=== PATIENT | male | born 1965 | race Caucasian/White ===

== ENCOUNTER → 2018-06-11 | Outpatient (CLI) | payer BC ==
[~2018-06-11] MED LIST: CEPH500 PO; LEVFLO500 PO; METR500 PO
[2018-06-11 09:52] LABS: Anion Gap 13 mmol/L (6-16); Blood Urea Nitrogen 16 mg/dL (8-24); Bun/Creatinine Ratio 15.2 (12.0-20.0); CO2, Blood 23 mmol/L (21-32); Calcium, Blood 9.2 mg/dL (8.5-10.1); Chloride, Blood 102 mmol/L (98-108); Creatinine, Blood 1.05 mg/dL (0.60-1.20); Glomerular Filtration Rate >60 (60-); Glucose, Blood 239 mg/dL (70-99); Potassium, Blood 3.8 mmol/L (3.5-5.5); Sodium, Blood 138 mmol/L (136-145)
[2018-06-12 10:38] LABS: Albumin, Blood 3.9 g/dL (3.4-5.0); Albumin/Globulin Ratio 1.1 (0.8-1.8); Bilirubin, Direct 0.1 mg/dL (0.0-0.3); Bilirubin, Indirect 0.4 mg/dL (0.1-0.7); Bilirubin, Total 0.5 mg/dL (0.1-1.0); Globulin, Blood 3.4 g/dL (2.2-4.0); Total Protein, Blood 7.3 g/dL (6.4-8.2)
== END | disposition home or self-care (01) ==
LOC: LAB EV 09:38 → LAB SHORT 09:38
PROVIDERS: Physician Assistant Medical
DX: I10 Essential (primary) hypertension (principal); R73.9 Hyperglycemia, unspecified
CPT/HCPCS: 80048; 80076; 83036

== ENCOUNTER → 2020-10-01 | Outpatient (CLI) | payer OTHER ==
[2020-10-01 13:07] LABS: Bun/Creatinine Ratio 23.7 (12.0-20.0); Calcium, Blood 8.3 mg/dL (8.5-10.1); Creatinine, Blood 1.52 mg/dL (0.60-1.20); Potassium, Blood 5.2 mmol/L (3.5-5.5)
== END | disposition home or self-care (01) ==
LOC: LAB SHORT 12:53 → LAB 12:53
PROVIDERS: Physician Assistant
DX: L03.114 Cellulitis of left upper limb (principal)
CPT/HCPCS: 80048

== ENCOUNTER 2021-04-09 14:50 | Inpatient (IN) | payer OTHER ==
[~2021-04-09] VITALS: Ht 177.8 cm; Wt 105.0 kg
[~2021-04-09 14:50] MED LIST changes: -ACET325 PO; -B-1100 M1 PO; -FOLI1 PO; -Hair, Skin & N1 EACH PO; -INSULANPEN SC; -LOSA25 PO; -METFORMIN ER G500 MG PO; -METO25ER PO; -OMEP20ER PO; -VITAMIN D33000 UNIT; -ZINC15; -ZINC220 PO
[2021-04-09] MEDS ORDERED: METFORMIN ER G500 MG PO (15:42)
[2021-04-09] MEDS ORDERED: LOSA25 PO (15:43)
[2021-04-09 16:35] LABS: Percent Saturation 1.6 % (20.0-50.0)
[2021-04-09 18:07] LABS: Ethanol (Alcohol), Blood, Med <3 mg/dL; Magnesium, Blood 2.2 mg/dL (1.6-2.4); Troponin I 0.048 ng/mL (0.000-0.040)
[2021-04-09 18:37] LABS: International Normalized Ratio 1.01; Prothrombin Time Results 10.6 Sec (9.7-11.5)
[2021-04-09] MEDS ORDERED: VITAMIN D33000 UNIT (23:29)
[2021-04-09] MEDS ORDERED: ZINC15 (23:30)
[2021-04-10 00:51] LABS: Stool Occult Blood Guaiac 1 Pos (Neg)
--- NOTE | 2021-04-10 01:51 | NUR ---
TELEMETRY AT APPROX 0000 NOTIFIED BY GIS COORDINATOR THAT PT HAD A 3.7 SECOND PAUSE. SHORTLY AFTER PT HAD TWO EPISODES WHERE HE WOULD RASTA DOWN INTO THE 30'S FOR A FEW SECONDS AND THEN PT WOULD RETURN TO SINUS RHYTHM 90'S-LOW 100'S. PT SLEEPING DURING EACH EPISODE. NOTIFIED DR. OSORIO. NEW ORDERS FOR CHEM PANEL AND MAGNESIUM BLOOD DRAWS IN THE AM AND OTHERWISE TO CONTINUE TO MONITOR. ORDERS PLACED. DR. OSORIO ALSO MADE AWARE OF POSITIVE OCCULT GUAIC.
--- NOTE | 2021-04-10 05:33 | NUR ---
A/OX4. SBA TO BR. PIV RT AC LR @ 125ml/hr. RECEIVED 2 UNIT PRBC IN ER. CIWA FOR 72hrs, LAST DRINK 6 DAYS AGO. IF <8 THEN DC'D. DM2 - ADA DIET. TELE: ESTEFANI.
[2021-04-10 06:03] LABS: Hematocrit 20.4 % (37.0-53.0); Mean Corpuscular HGB 20.8 pg (26.0-34.0); Mean Corpuscular HGB Conc 28.9 g/dL (31.5-36.5); Mean Corpuscular Volume 72 fL (80-100); Mean Platelet Volume 9.9 fL (9.1-12.4); Platelet Count 205 K/mm3 (150-400); RDW Coefficient Variation 17.5 % (11.7-14.2); RDW Standard Deviation 46.2 fL (35.1-46.3); Red Blood Cell Count 2.83 M/mm3 (4.30-5.90); White Blood Cell Count 5.47 K/mm3 (4.00-11.30)
[2021-04-10 06:44] LABS: Hemoglobin 5.9 g/dL (13.5-17.5)
--- NOTE | 2021-04-10 06:47 | NUR ---
NIGHT HOSPITALIST WAS CALLED ABOUT HEMOGLOBIN 5.9 AND RASTA DOWN TO 5.9, BUT NO RETURN CALL.
[2021-04-10 06:51] LABS: Albumin, Blood 2.9 g/dL (3.4-5.0); Bilirubin, Total 0.4 mg/dL (0.1-1.0); Bun/Creatinine Ratio 18.2 (12.0-20.0); Calcium, Blood 8.4 mg/dL (8.5-10.1); Creatinine, Blood 1.54 mg/dL (0.60-1.20); Potassium, Blood 4.7 mmol/L (3.5-5.5); Total Protein, Blood 5.9 g/dL (6.4-8.2)
[2021-04-10 09:13] LABS: BASOPHILS ABSOLUTE AUTO 0.03 K/mm3 (0.00-0.23); BASOPHILS PERCENT AUTO 1 % (0-2); EOSINOPHILS ABSOLUTE AUTO 0.33 K/mm3 (0.00-0.68); EOSINOPHILS PERCENT AUTO 6 % (0-6); Hematocrit 22.5 % (37.0-53.0); Hemoglobin 6.4 g/dL (13.5-17.5); IMMATURE GRAN ABSOLUTE AUTO 0.02 K/mm3 (0.00-0.10); IMMATURE GRAN PERCENT AUTO 0 % (0-1); LYMPHOCYTES ABSOLUTE AUTO 1.31 K/mm3 (0.84-5.20); LYMPHOCYTES PERCENT AUTO 25 % (21-46); MONOCYTES ABSOLUTE AUTO 0.42 K/mm3 (0.16-1.47); MONOCYTES PERCENT AUTO 8 % (4-13); Mean Corpuscular HGB 20.6 pg (26.0-34.0); Mean Corpuscular HGB Conc 28.4 g/dL (31.5-36.5); Mean Corpuscular Volume 72 fL (80-100); Mean Platelet Volume 9.5 fL (9.1-12.4); NEUTROPHILS ABSOLUTE AUTO 3.06 K/mm3 (1.96-9.15); NEUTROPHILS PERCENT AUTO 59 % (41-73); Platelet Count 218 K/mm3 (150-400); RDW Coefficient Variation 17.6 % (11.7-14.2); RDW Standard Deviation 45.8 fL (35.1-46.3); Red Blood Cell Count 3.11 M/mm3 (4.30-5.90); White Blood Cell Count 5.17 K/mm3 (4.00-11.30)
--- NOTE | 2021-04-10 17:30 | NUR ---
Echocardiogram completed
--- NOTE | 2021-04-10 18:01 | NUR ---
SHIFT SUMMARY; PATIENT HAD UNEVENTFUL DAY. HE IS RECEIVING IV ANTIBIOTICS. HE HAS RECEIVED INSULIN WITH MEALS. DR. KATZ SAYS PAITNET MAY DISCHARGE TO HOME IN THE AM IF BLOOD CULTURES COME BACK NEGATIVE. HE AMBULATES TO BATHROOM WITHOUT ASSIST. HE IS AO X 4. CELLULITIS OF LOWER LEGS LOOKS TO BE GETTING BETTER IT HAS NOT TRAVELED OUTSIDE OF MARKINGS FROM LAST NOC. WILL REMAIN AVAILABLE FOR THIS PATIENT FOR ANY WANTS OR NEEDS UNTIL HAND OFF AT SHIFT CHANGE. CARLOS ROSE RN
[2021-04-10 18:02] LABS: Hematocrit 24.2 % (37.0-53.0); Hemoglobin 7.1 g/dL (13.5-17.5)
--- NOTE | 2021-04-10 18:17 | NUR ---
SCOPE IN AM. CAME TO SEE BOGDAN TODAY. PATIENT IS NOW CLEAR LIQUID DIET AND SCOPE IN AM. ICE CHIPS AFTER 9PM AND NPO AFTER MIDNIGHT. YEHUDA VERBALIZED UNDERSTANDING. HE RECEIVED ONE UNIT PRBC'S TODAY AND REPEAT HGB WAS HEMOLIZED SO ARE STILL WAITING FOR RESULTS AT THIS TIME. CARLOS ROSE RN
[2021-04-10 20:52] LABS: Hematocrit 23.9 % (37.0-53.0); Hemoglobin 6.9 g/dL (13.5-17.5)
[2021-04-11 05:19] LABS: BASOPHILS ABSOLUTE AUTO 0.03 K/mm3 (0.00-0.23); BASOPHILS PERCENT AUTO 1 % (0-2); EOSINOPHILS ABSOLUTE AUTO 0.29 K/mm3 (0.00-0.68); EOSINOPHILS PERCENT AUTO 5 % (0-6); Hematocrit 23.2 % (37.0-53.0); Hemoglobin 6.7 g/dL (13.5-17.5); IMMATURE GRAN ABSOLUTE AUTO 0.02 K/mm3 (0.00-0.10); IMMATURE GRAN PERCENT AUTO 0 % (0-1); LYMPHOCYTES ABSOLUTE AUTO 1.38 K/mm3 (0.84-5.20); LYMPHOCYTES PERCENT AUTO 23 % (21-46); MONOCYTES ABSOLUTE AUTO 0.56 K/mm3 (0.16-1.47); MONOCYTES PERCENT AUTO 9 % (4-13); Mean Corpuscular HGB 21.1 pg (26.0-34.0); Mean Corpuscular HGB Conc 28.9 g/dL (31.5-36.5); Mean Corpuscular Volume 73 fL (80-100); Mean Platelet Volume 9.6 fL (9.1-12.4); NEUTROPHILS ABSOLUTE AUTO 3.79 K/mm3 (1.96-9.15); NEUTROPHILS PERCENT AUTO 63 % (41-73); Platelet Count 202 K/mm3 (150-400); RDW Standard Deviation 47.2 fL (35.1-46.3); Red Blood Cell Count 3.18 M/mm3 (4.30-5.90); White Blood Cell Count 6.07 K/mm3 (4.00-11.30)
[2021-04-11 06:16] LABS: Albumin/Globulin Ratio 1.1 (0.8-1.8); Bilirubin, Total 0.4 mg/dL (0.1-1.0); Bun/Creatinine Ratio 14.6 (12.0-20.0); Calcium, Blood 8.5 mg/dL (8.5-10.1); Creatinine, Blood 1.44 mg/dL (0.60-1.20); Globulin, Blood 2.8 g/dL (2.2-4.0); Magnesium, Blood 1.8 mg/dL (1.6-2.4); Phosphorus, Blood 3.6 mg/dL (2.5-4.9); Potassium, Blood 4.5 mmol/L (3.5-5.5); Total Protein, Blood 5.8 g/dL (6.4-8.2)
--- NOTE | 2021-04-11 07:49 | NUR ---
History, Chart, Medications and Allergies reviewed before start of procedure. Patient confirms NPO status and agrees with scheduled surgery. Pre-Op teaching done. Pt verbalizes understanding.
--- NOTE | 2021-04-11 08:12 | NUR ---
04/11/21 0812 Marco Morris History, Chart, Medications and Allergies reviewed before start of procedure.MONITOR INTACT WITH CONTINUOUS PULSE OXIMETRY AND INTERMITTENT BP.3-LEAD EKG REVIEWED WITH PHYSICIAN PRIOR TO START OF PROCEDURE.O2 VIA POM INTACT THROUGHOUT SEDATION/PROCEDURE. See Anesthesia record.
[2021-04-11] MEDS ORDERED: ZINC220 PO (10:53)
[2021-04-11] MEDS ORDERED: INSULANPEN SC (10:54)
[2021-04-11] MEDS ORDERED: METO25ER PO (10:54)
[2021-04-11] MEDS ORDERED: FOLI1 PO (10:54)
[2021-04-11] MEDS ORDERED: ACET325 PO (10:54)
[2021-04-11] MEDS ORDERED: B-1100 M1 PO (10:54)
[2021-04-11] MEDS ORDERED: Hair, Skin & N1 EACH PO (10:55)
[2021-04-11] MEDS ORDERED: OMEP20ER PO (10:55)
--- NOTE | 2021-04-11 14:47 | NUR ---
PATIENT WAS DISCHARGED TO HOME. SPOUSE CAME TO GET HIM AND WILL DRIVE HIM HOME. PAITNET IS STARTED ON PO BACTRIM AND IV WAS DISCONTINUED. HE WAS ABLE TO VERBALIZE DC INSTRUCTIONS. CARLOS ROSE RN
== END 2021-04-11 12:09 | disposition home or self-care (01) | DRG 378 ==
LOC: ER 14:50 → MEDS 14:51
PROVIDERS: Emergency Medicine; Family Medicine; Hospitalist; Internal Medicine Gastroenterology; Physician Assistant; ADMIT Internal Medicine
PROC: 30233N1 Transfusion of Nonautologous Red Blood Cells into Peripheral Vein, Percutaneous Approach (ICD-10-PCS; principal; 2021-04-10)
PROC: HZ2ZZZZ Detoxification Services for Substance Abuse Treatment (ICD-10-PCS; 2021-04-10)
PROC: 0DB68ZX Excision of Stomach, Via Natural or Artificial Opening Endoscopic, Diagnostic (ICD-10-PCS; 2021-04-11 08:00)
DX: K26.4 Chronic or unspecified duodenal ulcer with hemorrhage (principal); D62 Acute posthemorrhagic anemia; N17.9 Acute kidney failure, unspecified; E87.1 Hypo-osmolality and hyponatremia; M19.011 Primary osteoarthritis, right shoulder; F10.20 Alcohol dependence, uncomplicated; D50.9 Iron deficiency anemia, unspecified; I12.9 Hypertensive chronic kidney disease with stage 1 through stage 4 chronic kidney disease, or unspecified chronic kidney disease; E86.0 Dehydration; E11.65 Type 2 diabetes mellitus with hyperglycemia; N18.30 Chronic kidney disease, stage 3 unspecified; E11.22 Type 2 diabetes mellitus with diabetic chronic kidney disease; Z71.6 Tobacco abuse counseling; Z91.14 Patient's other noncompliance with medication regimen; Z87.19 Personal history of other diseases of the digestive system; Z98.890 Other specified postprocedural states; Z87.891 Personal history of nicotine dependence; Z79.84 Long term (current) use of oral hypoglycemic drugs; Z79.899 Other long term (current) drug therapy
CPT/HCPCS: 36415; 36430; 80053; 82272; 82607; 82728; 82746; 82947; 83540; 83550; 83605; 83690; 83735; 83880; 84100; 84145; 84484; 85014; 85018; 85025; 85027; 85610; 86850; 86900; 86901; 86923; 87015; 87045; 87046; 87205; 87899; 88305; 88342; 93005; 93010; 93306; 96374; 96376; 99284-25; A9270; C9113; G0378; G0480; J1815; J2001; J2250; J2704; J2916; J7030; J7050; J7120; P9016

== ENCOUNTER → 2021-04-09 | Outpatient (CLI) | payer OTHER ==
[~2021-04-09] MED LIST changes: +ACET325 PO; +B-1100 M1 PO; +FOLI1 PO; +Hair, Skin & N1 EACH PO; +INSULANPEN SC; +LOSA25 PO; +METFORMIN ER G500 MG PO; +METO25ER PO; +OMEP20ER PO; +VITAMIN D33000 UNIT; +ZINC15; +ZINC220 PO
[2021-04-09 13:32] LABS: BASOPHILS ABSOLUTE AUTO 0.04 K/mm3 (0.00-0.23); BASOPHILS PERCENT AUTO 1 % (0-2); EOSINOPHILS ABSOLUTE AUTO 0.21 K/mm3 (0.00-0.68); EOSINOPHILS PERCENT AUTO 4 % (0-6); Hematocrit 19.5 % (37.0-53.0); IMMATURE GRAN ABSOLUTE AUTO 0.03 K/mm3 (0.00-0.10); IMMATURE GRAN PERCENT AUTO 1 % (0-1); LYMPHOCYTES PERCENT AUTO 25 % (21-46); MONOCYTES ABSOLUTE AUTO 0.66 K/mm3 (0.16-1.47); MONOCYTES PERCENT AUTO 11 % (4-13); Mean Corpuscular HGB 19.1 pg (26.0-34.0); Mean Corpuscular HGB Conc 27.7 g/dL (31.5-36.5); Mean Corpuscular Volume 69 fL (80-100); Mean Platelet Volume 9.1 fL (9.1-12.4); NEUTROPHILS ABSOLUTE AUTO 3.55 K/mm3 (1.96-9.15); NEUTROPHILS PERCENT AUTO 59 % (41-73); Platelet Count 214 K/mm3 (150-400); RDW Standard Deviation 42.1 fL (35.1-46.3); Red Blood Cell Count 2.83 M/mm3 (4.30-5.90); White Blood Cell Count 5.99 K/mm3 (4.00-11.30)
[2021-04-09 13:38] LABS: Hemoglobin 5.4 g/dL (13.5-17.5)
[2021-04-09 13:44] LABS: Albumin, Blood 3.6 g/dL (3.4-5.0); Albumin/Globulin Ratio 1.2 (0.8-1.8); Bilirubin, Total 0.3 mg/dL (0.1-1.0); Bun/Creatinine Ratio 17.7 (12.0-20.0); Calcium, Blood 8.8 mg/dL (8.5-10.1); Creatinine, Blood 1.98 mg/dL (0.60-1.20); Globulin, Blood 3.1 g/dL (2.2-4.0); Potassium, Blood 4.8 mmol/L (3.5-5.5); Total Protein, Blood 6.7 g/dL (6.4-8.2)
== END | disposition home or self-care (01) ==
LOC: LAB 13:24 → LAB SHORT 13:24
PROVIDERS: Physician Assistant
DX: F10.20 Alcohol dependence, uncomplicated (principal); R60.9 Edema, unspecified; R73.9 Hyperglycemia, unspecified
CPT/HCPCS: 80053; 82746; 83880; 84425; 85025

== ENCOUNTER → 2021-06-08 | Outpatient (CLI) | payer OTHER ==
[~2021-06-08] MED LIST changes: +ACET325 PO; +B-1100 M1 PO; +FOLI1 PO; +Hair, Skin & N1 EACH PO; +INSULANPEN SC; +LOSA25 PO; +METFORMIN ER G500 MG PO; +METO25ER PO; +OMEP20ER PO; +VITAMIN D33000 UNIT; +ZINC15; +ZINC220 PO
== END | disposition home or self-care (01) ==
LOC: LAB SHORT 08:00
DX: A04.8 Other specified bacterial intestinal infections (principal)
CPT/HCPCS: 87338

== ENCOUNTER 2021-06-15 10:07 | Day surgery (SDC) | payer OTHER ==
[~2021-06-15] VITALS: Ht 177.8 cm; Wt 100.2 kg
[~2021-06-15 10:07] MED LIST changes: +FERSU300 PO; +LOSA50 PO
--- NOTE | 2021-06-15 10:43 | NUR ---
Ambulatory in Day Surgery Lungs clear T/O to Auscultation. Patient confirms NPO status and agrees with scheduled surgery. Pre-Op teaching done. Pt verbalizes understanding. Patient States Post-Procedure ride home has been arranged.
--- NOTE | 2021-06-15 11:23 | NUR ---
06/15/21 1123 Lisa Waters History, Chart, Medications and Allergies reviewed before start of procedure. Patient confirms NPO status and agrees with scheduled surgery. 3-LEAD EKG REVIEWED WITH PHYSICIAN PRIOR TO START OF PROCEDURE. MONITOR INTACT WITH CONTINUOUS PULSE OXIMETRY AND INTERMITTENT BP. PATIENT DETERMINED TO BE ASA APPROPRIATE FOR PROPOFOL SEDATION PRIOR TO START OF PROCEDURE BY .
--- NOTE | 2021-06-15 13:47 | NUR ---
Discharge instructions reviewed with patient. Patient verbalizes understanding. Copy given to patient to take home. Discharged via wheelchair to private car for ride home.
== END 2021-06-15 13:49 | disposition home or self-care (01) ==
LOC: ORSCMMR 10:07 → ORSCSDS 13:30 → ORD 13:30 → ORSCMMR 13:49 → ORSCSDS 14:15
DX: D50.9 Iron deficiency anemia, unspecified (principal); D12.8 Benign neoplasm of rectum; D12.2 Benign neoplasm of ascending colon; D12.3 Benign neoplasm of transverse colon; K57.30 Diverticulosis of large intestine without perforation or abscess without bleeding; I10 Essential (primary) hypertension; E11.9 Type 2 diabetes mellitus without complications; K21.9 Gastro-esophageal reflux disease without esophagitis; Z87.11 Personal history of peptic ulcer disease; Z86.16 Personal history of COVID-19; E66.9 Obesity, unspecified; Z68.31 Body mass index [BMI] 31.0-31.9, adult; Z79.899 Other long term (current) drug therapy
CPT/HCPCS: 82947; 88305; J2250; J2704; J7120